=== PATIENT | male | born 1980 | race Hispanic/Latino ===

== ENCOUNTER 2017-12-09 06:42 | Emergency (ER) | payer BC, OTHER ==
[~2017-12-09] VITALS: Ht 182.9 cm; Wt 145.1 kg
[~2017-12-09 06:42] MED LIST: ATORVASTATIN CA20 MG PO; LANTUS100 UNIT/1 SQ; LANTUS100 UNITS/ SQ; LISINOPRIL10 MG PO; LISINOPRIL5 MG PO; METAGLIP PO; METFORMIN HCL500 M2 PO; MONTELUKAST SOD10 MG PO; NISOLDIPINE34 MG; NOVALOG SQ; NOVOLOG100 UNITS1 SQ; TRICOR145 MG PO; ZETIA10 MG PO; ZOLPIDEM TARTRA10 MG PO
--- OUTSIDE RECORDS SUMMARY | 2017-12-09 06:45 | XMS REPORT | Clinical Summary ---
Author Author [facility] Organization [facility] Address Unknown Phone Unavailable Care Team Providers Care Medical Sales Specialist Name Role Phone Mathieu Lovett MD PCP Unavailable Allergies Not on File Current Medications Not on file Active Problems Not on file Encounters Date Type Specialty Care Team Description 08/10/2017 Lab Lab Yemi Lovett MD 08/10/2017 Lab Lab Yemi Lovett MD Osteoarthritis of left knee, unspecified osteoarthritis type (Primary Dx);Left knee pain, unspecified chronicity;Swelling of left knee joint;Sprain of other specified parts of left knee, initial encounter after 12/08/2016 Social History Tobacco Use Types Packs/Day Years Used Date Never Assessed Sex Assigned at Date Recorded Not on file Last Filed Vital Signs Not on file Plan of Treatment Health Maintenance Due Date Last Done Comments INFLUENZA VACCINE 06/02/2017 Results * Fungus culture (08/10/2017 5:20 PM) Component Value Ref Range Fungus culture isolate No growth after 4 weeks of incubation. Comment: Specimen Information Specimen Source: Joint Fluid Specimen Site: Left Knee Specimen Performing Laboratory Joint fluid [facility] [address] [place] [address] * Estimated GFR (08/10/2017 4:53 PM) Component Value Ref Range GFR Non Af Amer 58 (A) mL/min/1.73 m2 GFR Af Amer 70 mL/min/1.73 m2 Comment: Chronic kidney disease: <60 mL/min/1.73m2 Kidney failure: <15 mL/min/1.73m2 The estimated GFR is calculated from the IDMS-traceable Modification of Diet in Renal Disease Equation. The accuracy of the calculation is poor when the creatinine is normal. Calculated values >90 mL/min/1.73m2 are not reported. This equation has not been validated in children (<18 years), women, the elderly (>70 years), or ethnic groups other than Caucasians and Americans. Specimen Performing Laboratory Plasma specimen [facility] MEDIC[facility] [address] [place] [address] * Sedimentation rate (08/10/2017 4:53 PM) Component Value Ref Range Sedimentation rate 44 (H) 0 - 10 mm/hr Specimen Performing Laboratory Blood [facility] [address] [place] [address] * CBC with platelet and differential (08/10/2017 4:53 PM) Component Value Ref Range WBC 8.99Comment: results performed on downtime by [facility] 4.50 - 11.00 k/uL RBC 4.74 4.40 - 6.00 m/uL HGB 13.6 (L) 14.0 - 18.0 g/dL HCT 41.9 41.0 - 51.0 % MCV 88.4 82.0 - 100.0 fL MCH 28.7 27.0 - 34.0 pg MCHC 32.5 31.0 - 37.0 g/dL RDW - SD 42.5 37.0 - 55.0 fL MPV 10.0 8.8 - 13.2 fL Platelet count 402 (H) 150 - 400 k/uL Nucleated RBC 0.00 /100 WBC Neutrophils 64.4 39.0 - 69.0 % Lymphocytes 22.5 (L) 25.0 - 45.0 % Monocytes 9.1 0.0 - 10.0 % Eosinophils 3.2 0.0 - 5.0 % Basophils 0.4 0.0 - 1.0 % Immature granulocytes 0.4Comment: "Immature granulocytes" 0.0 - 1.0 % (promyelocytes, myelocytes, metamyelocytes) Specimen Performing Laboratory Blood [facility] [address] [place] [address] * C-reactive protein (08/10/2017 4:53 PM) Component Value Ref Range CRP 15.89 (H) 0.00 - 0.50 mg/dL Specimen Performing Laboratory Plasma specimen [facility] [address] [place] [address] * Uric acid level (08/10/2017 4:53 PM) Component Value Ref Range Uric acid 12.1 (H) 3.4 - 7.0 mg/dL Specimen Performing Laboratory Plasma specimen [facility] [address] [place] [address] * Comprehensive metabolic panel (08/10/2017 4:53 PM) Component Value Ref Range Sodium 141 135 - 148 mEq/L Potassium 4.4 3.5 - 5.0 mEq/L Chloride 97 (L) 98 - 112 mEq/L CO2 21 (L) 24 - 31 mEq/L Anion gap 23 (H) 7 - 15 mEq/L Comment: Starting from January , anion gap calculation no longer incorporates potassium. Please note the change. BUN 37 (H) 6 - 20 mg/dL Creatinine 1.4 (H) 0.7 - 1.2 mg/dL Glucose 106 (H) 65 - 99 mg/dL Calcium 10.3 (H) 8.3 - 10.2 mg/dL Protein 8.5 (H) 6.3 - 8.3 g/dL Comment: 4.6-7.0 g/dL 1 week 4.4-7.6 g/dL 7 months-1year 5.1-7.3 g/dL 1-2 years 5.6-7.5 g/dL >3 years 6.0-8.0 g/dL 18-150 6.3-8.3 g/dL Albumin 4.2 3.5 - 5.0 g/dL A/G ratio 1.0 0.7 - 3.8 Alkaline phosphatase 54 40 - 129 U/L AST 28 10 - 50 U/L ALT 32 5 - 50 U/L Total bilirubin 0.6 0.0 - 1.2 mg/dL Specimen Performing Laboratory Plasma specimen [facility] [address] [place] [address] * Joint fluid culture (08/10/2017 4:20 PM) Component Value Ref Range Joint fluid culture Gram positive cocci in pairs isolate Recovered in Broth only: Organism failed to thrive for identification and susceptibility testing. (A) Comment: Specimen Information Specimen Source: Joint Fluid Specimen Site: Left Knee Specimen Performing Laboratory Joint fluid [facility] [address] [place] [address] * Fungus smear (08/10/2017 4:20 PM) Component Value Ref Range Fungus smear No fungi observed. Comment: Specimen Information Specimen Source: Joint Fluid Specimen Site: Left Knee Specimen Performing Laboratory Joint fluid [facility] OF [facility]OM[facility] [address] [place] [address] * Body fluid consult (08/10/2017 4:20 PM) Component Value Ref Range Body fluid consult DoneComment: Reviewed by Dr. Lange 08/11/17: agree with cell count Specimen Performing Laboratory Fluid [facility] [address] [place] [address] [place] [address] * Gram stain (08/10/2017 4:20 PM) Component Value Ref Range Gram stain isolate Moderate WBC's No organisms seen Comment: Specimen Information Specimen Source: Joint Fluid Specimen Site: Left Knee Specimen Performing Laboratory Joint fluid [facility] [address] [place] [address] * Anaerobic culture (08/10/2017 4:20 PM) Component Value Ref Range Anaerobic culture isolate No anaerobic organisms isolated. Comment: Specimen Information Specimen Source: Joint Fluid Specimen Site: Left Knee Specimen Performing Laboratory Joint fluid [facility] [address] [place] [address] * Cell count and differential, body fluid (08/10/2017 4:20 PM) Component Value Ref Range Misc fluid type Synovial Comment: left knee fluid performed on downtime by [facility] Color, fluid Yellow Appearance, fluid FootnoteComment: Turbid RBC, fluid 23904 /CMM Nucleated cells, fluid 23418 /CMM Fluid mononuclear cell 0 Neutrophils, fluid 99 % Lymphocytes, fluid 1 % Specimen Performing Laboratory Fluid [facility] [address] [place] [address] [place] [address] after 12/08/2016 Insurance Payer Benefit Subscriber ID Type Phone Address Plan / Group [facility] [id number] PPO CHOICE PPO/TONIA BOWMAN PPO
[2017-12-09] MEDS ORDERED: KETOROLAC TROMETHAMINE 30 MG/ML VIAL IV STA (07:35)
[2017-12-09] MEDS ORDERED: LIDOCAINE HCL 2% LOCAL 20 ML VIAL INJ ONE (07:45)
[2017-12-09] MEDS ORDERED: CLINDAMYCIN PHOS 900MG/ D5W 50 50 ML IV ONE (07:45)
[2017-12-09] MEDS ORDERED: CEFAZOLIN SOD 2 GM in WATER STERILE 10ML VIAL 10 ML IV ONE (07:45)
[2017-12-09] MEDS ORDERED: LIDOCAINE HCL 1% LOCAL INJ 20 ML VIAL INJ ONE (08:00)
[2017-12-09] MEDS ORDERED: CEFAZOLIN SOD 2 GM/D5W 50ML 50 ML IV ONE (08:00)
[2017-12-09] MEDS ORDERED: MORPHINE SULFATE 2 MG/ML SYR ONE (09:07)
[2017-12-09] MEDS ORDERED: MORPHINE SULFATE 4 MG/ML SYR IV PRN (09:15)
[2017-12-09] MEDS ORDERED: MORPHINE SULFATE 2 MG/ML SYR IV PRN ×2 (09:15)
[2017-12-09 09:42] VITALS: BP 101/63
== END 2017-12-09 10:36 | disposition home or self-care (01) ==
LOC: ER 06:42
DX: L05.01 Pilonidal cyst with abscess (principal); F17.210 Nicotine dependence, cigarettes, uncomplicated
CPT/HCPCS: 10081; 87071; 87186; 87205; 99283; J1885; J2001; J2270